=== PATIENT | female | born 1970 | race Two or more races ===

== ENCOUNTER 2017-02-11 14:14 | Emergency (ER) | payer MEDICAID ==
[~2017-02-11] VITALS: Ht 165.1 cm; Wt 72.6 kg
[2017-02-11] MEDS ORDERED: Bacitracin Oint UD TOPIC ONE (14:30)
[2017-02-11] MEDS ORDERED: Morphine Sulfate 2mg/ml Inj IVP ONE ×2 (14:30→16:00)
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
[2017-02-11 15:42] VITALS: BP 129/71
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
[2017-02-11] MEDS ORDERED: ACETAMINOPHEN-1 EAC1 ORAL (17:07)
[2017-02-11] MEDS ORDERED: CYCLOBENZAPRINE10 MG ORAL (17:07)
[2017-02-11] MEDS ORDERED: BACITRACIN-P28.35 GM TP (17:07)
[2017-02-11 17:12] VITALS: BP 124/73
[2017-02-11 17:45] VITALS: BP 124/73
== END 2017-02-11 17:49 | disposition home or self-care (01) ==
LOC: EDBD 14:14 → EMR 14:35
DX: S00.81XA Abrasion of other part of head, initial encounter (principal); S00.83XA Contusion of other part of head, initial encounter; S30.811A Abrasion of abdominal wall, initial encounter; V43.52XA Car driver injured in collision with other type car in traffic accident, initial encounter; Y93.9 Activity, unspecified; Y92.410 Unspecified street and highway as the place of occurrence of the external cause; S01.512A Laceration without foreign body of oral cavity, initial encounter; K42.9 Umbilical hernia without obstruction or gangrene; K57.90 Diverticulosis of intestine, part unspecified, without perforation or abscess without bleeding; M48.02 Spinal stenosis, cervical region; J32.0 Chronic maxillary sinusitis
CPT/HCPCS: 70450; 72125; 74176; 81025; 96374; 96375; 99284; J2270; J2405

== ENCOUNTER 2017-05-02 23:03 | Emergency (ER) | payer MEDICAID ==
[~2017-05-02] VITALS: Ht 157.5 cm; Wt 82.6 kg
[~2017-05-02 23:03] MED LIST: ACETAMINOPHEN-1 EAC1 ORAL; BACITRACIN-P28.35 GM TP; CYCLOBENZAPRINE10 MG ORAL
[2017-05-02 23:25] VITALS: BP 111/70
[2017-05-02] MEDS ORDERED: PREDNISONE20 MG ORAL (23:45)
[2017-05-02] MEDS ORDERED: AUGMENTIN 875-1 EAC1 ORAL (23:45)
[2017-05-02] MEDS ORDERED: IBUPROFEN600 MG ORAL (23:45)
[2017-05-02 23:56] VITALS: BP 111/70
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
== END 2017-05-02 23:56 | disposition home or self-care (01) ==
LOC: EMR 23:30
DX: J02.9 Acute pharyngitis, unspecified (principal)
CPT/HCPCS: 99284